=== PATIENT | female | born 1970 | race American Indian/Alaskan Native ===

== ENCOUNTER 2020-09-04 11:47 | Emergency (ER) | payer OTHER ==
--- NOTE | 2020-09-04 12:42 | Event Note ---
ED Screening Note Date of service: 09/04/20 Time: 12:41 ED Screening Note: 50-year-old -[place] female presents to the emergency room complaining of heavy menstrual cycle x2 weeks. Complains of dizziness weakness and mild cramping. Patient reports she is spoke with her TELEPHONE APPOINTMENT CLERK and they referred her to the emergency room to get evaluated. Patient does have a past medical history of hypertension and fibroids. This initial assessment/diagnostic orders/clinical plan/treatment(s) is/are subject to change based on patients health status, clinical progression and re- assessment by fellow clinical providers in the ED. Further treatment and workup at subsequent clinical providers discretion. Patient/guardian urged not to elope from the ED as their condition may be serious if not clinically assessed and managed. Initial orders include:
[2020-09-04 13:01] LABS: Bilirubin,Urine NEG (Negative); Blood,Urine LG (Negative); Color,Urine Yellow (Yellow); Protein,Urine <15 mg/dL mg/dL (Negative); Urobilinogen,Urine < 2.0 mg/dL (<2.0)
[2020-09-04 13:02] LABS: Basophils % (Auto) 0.4 % (0.0-1.8); Eosinophils % (Auto) 0.1 % (0.0-4.3); Hematocrit 30.2 % (30.3-42.9); Hemoglobin 10.3 gm/dl (10.1-14.3); Lymphocytes % (Auto) 21.3 % (13.4-35.0); Mean Corpuscular HGB Conc 34 % (30-34); Mean Corpuscular Volume 91 fl (79-97); Monocytes # (Auto) 0.6 K/mm3 (0.0-0.8); Monocytes % (Auto) 6.3 % (0.0-7.3); Platelet Count 257 K/mm3 (140-440); Red Cell Distribution Width 13.3 % (13.2-15.2)
[2020-09-04 13:15] LABS: RBC,Urine > 182.0 /HPF (0.0-6.0)
[2020-09-04 13:17] LABS: HCG Qualitative,Urine Negative (Negative)
--- NOTE | 2020-09-04 14:07 | Emergency Department Report ---
ED General Adult HPI - General Chief complaint: Vaginal Bleeding Stated complaint: EXCESSIVE VAGINAL BLEEDING Time Seen by Provider: 09/04/20 13:57 Source: patient Mode of arrival: Ambulatory Limitations: No Limitations - History of Present Illness Initial comments: Patient is a 50-year-old female with history of fibroids presents emergency department for evaluation of vaginal versus urethral bleeding x2 weeks. Patient complaining of mild suprapubic crampy abdominal pain constantly throughout, denies nausea vomiting diarrhea, denies fever. Patient denies lightheadedness or dizziness. - Related Data Home Medications Medication Instructions Recorded Confirmed Last Taken atenoloL [Tenormin] 25 mg PO QDAY 09/04/20 09/04/20 Unknown Allergies Allergy/AdvReac Type Severity Reaction Status Date / Time No Known Allergies Allergy Verified 09/04/20 11:53 ED Review of Systems ROS: Stated complaint: EXCESSIVE VAGINAL BLEEDING Other details as noted in HPI Comment: All other systems reviewed and negative ED Past Medical Hx - Past Medical History Hx Hypertension: Yes Hx GERD: Yes Additional medical history: Fibroids - Surgical History Past Surgical History?: Yes Additional Surgical History: x2 - Social History Smoking Status: Never Smoker Substance Use Type: None - Medications Home Medications: Home Medications Medication Instructions Recorded Confirmed Last Taken Type atenoloL [Tenormin] 25 mg PO QDAY 09/04/20 09/04/20 Unknown History ED Physical Exam - General Limitations: No Limitations General appearance: alert, in no apparent distress - Head Head exam: Present: atraumatic, normocephalic - Eye Eye exam: Present: normal appearance - ENT ENT exam: Present: mucous membranes moist - Neck Neck exam: Present: normal inspection - Respiratory Respiratory exam: Present: normal lung sounds bilaterally. Absent: respiratory distress - Cardiovascular Cardiovascular Exam: Present: regular rate, normal rhythm - GI/Abdominal GI/Abdominal exam: Present: soft, normal bowel sounds - Extremities Exam Extremities exam: Present: normal inspection - Back Exam Back exam: Present: normal inspection - Neurological Exam Neurological exam: Present: alert, oriented X3 - Psychiatric Psychiatric exam: Present: normal affect, normal mood - Skin Skin exam: Present: warm, dry, intact, normal color. Absent: rash ED Course Vital Signs 09/04/20 09/04/20 11:50 14:19 Temperature 98.1 F Pulse Rate 90 Respiratory 16 17 Rate Blood Pressure 116/70 O2 Sat by Pulse 100 Oximetry ED Medical Decision Making - Lab Data Result diagrams: 09/04/20 12:01 Labs 09/04/20 09/04/20 09/04/20 12:01 12:01 Unknown WBC 9.2 RBC 3.30 L Hgb 10.3 Hct 30.2 L MCV 91 MCH 31 MCHC 34 RDW 13.3 Plt Count 257 Lymph % (Auto) 21.3 [place] % (Auto) 6.3 Eos % (Auto) 0.1 Baso % (Auto) 0.4 Lymph # (Auto) 2.0 [place] # (Auto) 0.6 Eos # (Auto) 0.0 Baso # (Auto) 0.0 Seg Neutrophils % 71.9 H Seg Neutrophils # 6.6 Urine Color Yellow Urine Turbidity Clear Urine pH 8.0 H Ur Specific Wendel 1.011 Urine Protein <15 mg/dl Urine Glucose (UA) Neg Urine Ketones Neg Urine Blood Lg Urine Nitrite Neg Urine Bilirubin Neg Urine Urobilinogen < 2.0 Ur Leukocyte Esterase Neg Urine WBC (Auto) 1.0 Urine RBC (Auto) > 182.0 U Epithel Cells (Auto) 1.0 Urine HCG, Qual Negative Blood Type A POSITIVE Antibody Screen Negative Vital Signs 09/04/20 09/04/20 11:50 14:19 Temperature 98.1 F Pulse Rate 90 Respiratory 16 17 Rate Blood Pressure 116/70 O2 Sat by Pulse 100 Oximetry - Radiology Data Radiology results: report reviewed [facility] [address] [place] [address] Cat Scan Report Signed Patient: LICO PANIAGUA MR#: [id number] : 1970 Acct:[id number] Age/Sex: 50 / F ADM Date: 09/04/20 Loc: ED Attending Dr: Ordering Physician: SCOTT WINSTON MD Date of Service: 09/04/20 Procedure(s): CT abdomen pelvis wo con Accession Number(s): [id number] cc: SCOTT WINSTON MD CT ABDOMEN AND PELVIS WITHOUT CONTRAST HISTORY: Hematuria COMPARISON: None. TECHNIQUE: Axial CT images were obtained through the abdomen and pelvis without IV contrast. Sagittal and coronal reformatted images. All CT scans at this location are performed using CT dose reduction for ALARA by means of automated exposure control. FINDINGS: CT ABDOMEN: Lung Bases: Clear. Liver: The liver is normal size, contour and attenuation. A 1.3 cm hypodensity in the right hepatic lobe is identified most consistent with a small cyst or hemangioma. Biliary: No significant abnormality. Spleen: No significant abnormality. Unenlarged. Pancreas: No significant abnormality. Adrenals: No significant abnormality. Kidneys: There is suggestion of a few punctate calyceal stones in both kidneys. No ureteral stones, hydronephrosis or focal renal lesion. Lymphatics: No lymphadenopathy. Vasculature: No significant abnormality. Bowel/Peritoneum: No significant abnormality. No free air. No free fluid. Normal appendix. CT PELVIS: : The uterus is mildly enlarged and lobular suggesting mild uterine fibroid disease. The adnexa and bladder are unremarkable. Osseous Structures: No significant abnormality. Additional Findings: None IMPRESSION: A few punctate renal calyceal stones are suspected bilaterally. No ureteral stones or hydronephrosis. No focal renal lesion on noncontrast CT. Mild uterine fibroid disease is suspected. Signer Name: Eufemia Dennis Jr, MD Signed: 09/04/2020 2:49 PM Workstation Name: [id number] Transcribed By: TTR Dictated By: EUFEMIA DENNIS JR, MD Electronically Authenticated By: EUFEMIA DENNIS JR, MD Signed Date/Time: 09/04/201448 DD/ 45 TD/TT: Critical care attestation.: If time is entered above; I have spent that time in minutes in the direct care of this critically ill patient, excluding procedure time. ED Disposition Clinical Impression: Fibroids Disposition: DC-01 TO HOME OR SELFCARE Is pt being admited?: No Condition: Stable Instructions: Uterine Fibroids Additional Instructions: Follow-up with [facility]MER [facility]TER in 1 to 2 days for reevaluation. Return to the emergency department for worsening symptoms.
--- NOTE | 2020-09-04 14:53 | Cat Scan Report ---
CT ABDOMEN AND PELVIS WITHOUT CONTRAST HISTORY: Hematuria COMPARISON: None. TECHNIQUE: Axial CT images were obtained through the abdomen and pelvis without IV contrast. Sagittal and coronal reformatted images. All CT scans at this location are performed using CT dose reduction for ALARA by means of automated exposure control. FINDINGS: CT ABDOMEN: Lung Bases: Clear. Liver: The liver is normal size, contour and attenuation. A 1.3 cm hypodensity in the right hepatic l obe is identified most consistent with a small cyst or hemangioma. Biliary: No significant abnormality. Spleen: No significant abnormality. Unenlarged. Pancreas: No significant abnormality. Adrenals: No significant abnormality. Kidneys: There is suggestion of a few punctate calyceal stones in both kidneys. No ureteral stones, h ydronephrosis or focal renal lesion. Lymphatics: No lymphadenopathy. Vasculature: No significant abnormality. Bowel/Peritoneum: No significant abnormality. No free air. No free fluid. Normal appendix. CT PELVIS: : The uterus is mildly enlarged and lobular suggesting mild uterine fibroid disease. The adnexa and bladder are unremarkable. Osseous Structures: No significant abnormality. Additional Findings: None IMPRESSION: A few punctate renal calyceal stones are suspected bilaterally. No ureteral stones or hydronephrosis. No focal renal lesion on noncontrast CT. Mild uterine fibroid disease is suspected. Signer Name: Roger Desai Jr, MD Signed: 09/04/2020 2:49 PM Workstation Name: [id number]
[2020-09-04 15:27] VITALS: BP 116/74
== END 2020-09-04 15:28 | disposition home or self-care (01) ==
LOC: ED 11:47
DX: D21.9 Benign neoplasm of connective and other soft tissue, unspecified (principal); I10 Essential (primary) hypertension; K21.9 Gastro-esophageal reflux disease without esophagitis; Z79.899 Other long term (current) drug therapy
CPT/HCPCS: 36415; 74176; 81001; 81025; 85025; 86850; 86900; 86901